=== PATIENT | male | born 1945 | race Caucasian/White ===

== ENCOUNTER → 2017-08-14 | Day surgery (SDC) | payer MEDICARE, OTHER ==
[~2017-08-14] VITALS: Ht 180.3 cm; Wt 87.0 kg
[~2017-08-14] MED LIST: ACETAMINOPHEN 1000 MG/100 ML 100 ML IV ONE; AMLO10TA2 PO; ATOR40TA16 PO; BUPIVACAINE HCL PF 0.5% 30 ML VIAL ONE; CEPH-459 PO; CHLORHEXIDINE GLUCONATE 2 % 1 PACK (2 CLOTHS) TOPICAL PRN; HYDR-3288 PO; HYDR25TA5 PO; IBUP-232 PO; LACTATED RINGER'S 1000 ML IV PRN; LIDOCAINE HCL 1% PF 5 ML SYRINGE OTHER ONE; LIDOCAINE HCL 2% 50 ML VIAL ONE; METOPROLOL TARTRATE 25 MG TAB PO PRN; MIDAZOLAM HCL 2 MG/2 ML VIAL ONE; NEOMYCIN/POLYMYXIN 1 ML G.U. IRRIGANT ONE; ONDANSETRON HCL 4 MG/2 ML VIAL IV PUSH ONE; POVIDONE IODINE 5% (ANTISEPSIS KIT) 4 APPLICATIONS EACH NARE PRN; PROPOFOL 200 MG/20 ML AMP IV ONE; SODIUM CHLORID 0.9% 500 ML IV PRN; TRIAMCINOLONE ACETONIDE 40 MG/ML VIAL ONE; ceFAZolin 2 GM PREMIX 50 ML IV SCH
[2017-08-14 11:39] VITALS: BP 113/64; PULSE 58; RESP 16; TEMP 98.1; O2SAT 97
--- NOTE | 2017-08-14 13:30 | MP ---
cc: LAM YANEZ III, M.D. DATE OF SURGERY 08/14/2017 PREOPERATIVE DIAGNOSIS Bilateral carpal tunnel syndrome and bilateral ring finger trigger fingers. PROCEDURE 1. Left open carpal tunnel release 2. Left ring finger A1 zhang release 3. Right carpal tunnel steroid injection 4. Right ring finger A1 zhang steroid injection SURGEON Lam Yanez III, MD PROCEDURE This patient was brought to the operating room and placed supine on the operating table. After the correct site and side of surgery were verified by members of each team in the room multiple times including the patient and myself and after adequate preop markings and preoperative written consent were verified by everyone and after adequate preoperative time-out was performed to everyone's satisfaction and after adequate IV sedation had been achieved, the left upper extremity was prepped and draped in the traditional sterile surgical fashion. The usual mixture of local anesthetic without epinephrine was injected into the carpal tunnel and the skin and subcutaneous tissue in the area of the ring finger A1 zhang. The limb was exsanguinated and a highly placed well-padded axillary tourniquet was inflated to 200 mmHg for a total of 50-minutes. A longitudinally oriented incision within the skin crease was made at the base of the palm and carried down through the skin and subcutaneous tissue. The transverse palmar fascia was retracted in opposite directions. The transverse carpal ligament identified, divided in the midline in its entirety from its proximal most to its distal-most extent. A point in his carpal tunnel and the carpal tunnel contents were examined and found to be intact and otherwise non-compromised. Here, there was a moderately hypertrophic tenosynovium. No other areas of concern were noted. There was no evidence of any mass effect. Thorough irrigation with saline was used and the skin edges were reapproximated using running 4-0 nylon suture. Attention was then paid to the ring finger A1 zhang and a transverse incision was made in the distal palmar flexion crease. Blunt dissection was performed. The A1 zhang was identified and found to be very redundant and it was divided in its entirety in the midline from its proximal most to its distal-most extents. A portion of the very thickened part was debrided. Exploration proximally did not reveal any crossing bands of tissue that would cause constriction as well. No other anatomic abnormalities were identified. The tendons were intact completely. A thorough irrigation with saline was performed. The skin edges were reapproximated using running 4-0 nylon suture. The hand and arm were thoroughly cleansed and dried. Betadine Adaptic dressings were applied atop of the wound followed by a bulky soft dressing. The axillary tourniquet released after 50 minutes and the hand and all the fingers became immediately soft, pink, and warm and had brisk capillary refill of less than two seconds. There was no evidence of any bleeding. Attention was then paid to the right side and the right carpal tunnel was sterilely injected in the usual fashion with a 2:1 mixture of 2% plain lidocaine and Kenalog 40/mL for a total of 2.5 cc of injectate. Pressure was held and then the right ring finger A1 zhang was sterilely injected in a one-to-one mixture of the same for a total of 1.4 cc of injectate. Pressure was held. A sterile compression bandages were applied. Capillary refill was less than two seconds. There was no bleeding. The patient was awakened from anesthesia and transported to the Post Anesthesia Care Unit awake and in stable condition at the end of the case. The sponge, needle, and instrument counts were correct at the end of the case as reported by the nurse in the room. MD SEPIDEH Davis III/EBONY /10:12 AM /1:11 PM
--- NOTE | 2017-08-14 15:57 | EKG ---
Date Performed: 08/14/2017 Time Performed: 08:18:04 PTAGE: 71 years EKG: Sinus rhythm NORMAL ECG NO PREVIOUS TRACING DOCTOR: Zee Gimenez Interpretating Date/Time 08/14/2017 15:55:22
== END | disposition home or self-care (01) ==
LOC: PHSDC 07:53
PROVIDERS: ATTEND Orthopaedic Surgery Hand Surgery
DX: G56.03 Carpal tunnel syndrome, bilateral upper limbs (principal); I10 Essential (primary) hypertension; Z01.810 Encounter for preprocedural cardiovascular examination
CPT/HCPCS: 01810; 20526; 20552; 26055; 64721; 93005; J0131; J0690; J2250; J2405; J3010; J3301; J7120